=== PATIENT | male | born 1945 | race African-American/Black ===

== ENCOUNTER 2017-08-20 19:58 | Emergency (ER) | payer OTHER ==
[~2017-08-20] VITALS: Ht 177.8 cm; Wt 95.3 kg
[~2017-08-20 19:58] MED LIST: ALLEGRA180 MG PO; AMLODIPINE BESYL5 MG PO; BYSTOLIC10 MG PO; TAMIFLU75 MG PO
--- OUTSIDE RECORDS SUMMARY | 2017-08-20 20:01 | XMS REPORT | Clinical Summary ---
Author Author [facility] Address Unknown Phone Unavailable Care Team Providers Care Manager Council Name Role Phone Melissa Malone MD PCP Allergies No Known Allergies Current Medications Prescription Sig. Disp. Refills Start End Date Status Date diclofenac sodium 3 % gel 0 04/14/19 Active 18 finasteride (PROSCAR) 5 0 04/13/19 Active mg tablet 18 ketoconazole 2 % foam 0 02/17/20 Active 17 levocetirizine (XYZAL) 5 0 04/02/19 Active MG tablet 18 levoFLOXacin (LEVAQUIN) 0 04/19/19 Active 500 MG tablet 18 lidocaine (XYLOCAINE) 5 % 0 04/21/19 Active ointment 18 losartan (COZAAR) 100 MG 0 03/08/20 Active tablet 17 metFORMIN (GLUCOPHAGE) 04/22/19 Active 500 mg tablet 18 Active Problems Problem Noted Date Prostate cancer 05/05/2017 Elevated PSA 05/05/2017 Erectile dysfunction 05/05/2017 Encounters Date Type Specialty Care Team Description 08/17/2017 Clinical Urology Elevated PSA (Primary Dx) Support 05/20/2017 Office Visit Urology Micah Breaux MD Elevated PSA ( Primary Dx); Prostate cancer; Erectile dysfunction, unspecified erectile dysfunction type 05/14/2017 Hospital Radiology Micah Breaux MD Encounter 05/14/2017 Hospital Radiology Micah Breaux MD Prostate cancer Encounter 05/14/2017 Hospital Radiology Micah Breaux MD Prostate cancer Encounter 05/07/2017 Telephone Urology Micah Breaux MD 05/05/2017 Office Visit Urology Micah Breaux MD Prostate cancer (Primary Dx); Elevated PSA; Erectile dysfunction, unspecified erectile dysfunction type after 08/19/2016 Family History Relation Name Status Comments Father Mother Social History Tobacco Use Types Packs/Day Years Used Date Never Smoker Smokeless Tobacco: Never Used Alcohol Use Drinks/Week oz/Week Comments Yes Sex Assigned at Date Recorded Not on file Last Filed Vital Signs Not on file Plan of Treatment Date Type Specialty Care Team Description 09/07/2017 Office Visit Urology Micah Breaux MD [address] [facility] [address] [place] [address] Health Maintenance Due Date Last Done Comments COLON CANCER SCREENING 1996 SHINGRIX VACCINE (#1) 1996 ZOSTER VACCINE 2006 PNEUMOCOCCAL 10/08/2011 POLYSACCHARIDE VACCINE AGE 65 AND OVER PNEUMOCOCCAL-13 10/08/2011 INFLUENZA VACCINE 10/20/2017 Results * Prostate specific antigen (08/17/2017 8:51 AM) Only the most recent of 2 results within the time period is included. Component Value Ref Range PSA 54.7 (H) 0.0 - 4.0 ng/mL Comment: Elena ECLIA methodology. According to the [place] [employer], Serum PSA should decrease and remain at undetectable levels after radical prostatectomy. The AUA defines biochemical recurrence as an initial PSA value 0.2 ng/mL or greater followed by a subsequent confirmatory PSA value 0.2 ng/mL or greater. Values obtained with different assay methods or kits cannot be used interchangeably. Results cannot be interpreted as absolute evidence of the presence or absence of malignant disease. Specimen Performing Laboratory Blood [facility] Narrative Performed at:[id number] Screening Specialist: David Starr MD, Phone:[phone] * CT Abdomen W Wo Contrast Pelvis W Wo Contrast (05/14/2017 12:15 PM) Specimen Performing Laboratory [facility] [address] [place] [address] Narrative EXAMINATION:CT ABDOMEN W WO CONTRAST PELVIS W WO CONTRAST CLINICAL HISTORY:C61 Malignant neoplasm of prostate, prostate cancer COMPARISON:No prior TECHNIQUE: Pre and postcontrast images of the abdomen and pelvis were obtained with and without intravenous iodinated contrast. The lack of intravenous contrast limits assessment of the solid organs. CT imaging was performed with iterative reconstruction technique and/or automated exposure control to reduce radiation dose. IMPRESSION: ABDOMEN: 1. Liver: The liver is normal. No focal mass. 2. Gallbladder: The gallbladder is normal. 3. Spleen: The spleen is not enlarged. 4. Pancreas: The pancreas is unremarkable. 5. Adrenal Glands: The adrenal glands are unremarkable. 6. Kidneys: The kidneys are unremarkable except for mild renal cortical scarring. No mass, hydronephrosis or calculi. 7. Abdominal Aorta: The abdominal aorta is nonaneurysmal. 8. Nodes: No enlarged retroperitoneal or mesenteric lymphadenopathy. 9. Bowel: Moderate diverticulosis of the sigmoid colon. No bowel obstruction or inflammation. The appendix is normal. Mild diverticulosis elsewhere in the colon. 10. Ascites: No ascites or fluid collections. PELVIS: 1.Pelvis: No mass, fluid collection or significant adenopathy. The prostate is enlarged. No definite findings of local metastatic disease within the pelvis or spread beyond the prostate. Prostate MRI may be beneficial.Tiny left inguinal fat-containing hernia. 2. Bones: Degenerative changes of the osseous structures. No suspicious lesions. 3. Lung Bases: Minimal basilar scarring. SUMMARY: 1. Enlarged prostate. No evidence of metastatic disease. Procedure Note Hm Interface, Radiology Results - 05/14/2017 1:50 PM MALT HOUSE SUPERVISOR EXAMINATION: CT ABDOMEN W WO CONTRAST PELVIS W WO CONTRAST CLINICAL HISTORY: C61 Malignant neoplasm of prostate, prostate cancer COMPARISON: No prior TECHNIQUE: Pre and postcontrast images of the abdomen and pelvis were obtained with and without intravenous iodinated contrast. The lack of intravenous contrast limits assessment of the solid organs. CT imaging was performed with iterative reconstruction technique and/or automated exposure control to reduce radiation dose. IMPRESSION: ABDOMEN: 1. Liver: The liver is normal. No focal mass. 2. Gallbladder: The gallbladder is normal. 3. Spleen: The spleen is not enlarged. 4. Pancreas: The pancreas is unremarkable. 5. Adrenal Glands: The adrenal glands are unremarkable. 6. Kidneys: The kidneys are unremarkable except for mild renal cortical scarring. No mass, hydronephrosis or calculi. 7. Abdominal Aorta: The abdominal aorta is nonaneurysmal. 8. Nodes: No enlarged retroperitoneal or mesenteric lymphadenopathy. 9. Bowel: Moderate diverticulosis of the sigmoid colon. No bowel obstruction or inflammation. The appendix is normal. Mild diverticulosis elsewhere in the colon. 10. Ascites: No ascites or fluid collections. PELVIS: 1. Pelvis: No mass, fluid collection or significant adenopathy. The prostate is enlarged. No definite findings of local metastatic disease within the pelvis or spread beyond the prostate. Prostate MRI may be beneficial. Tiny left inguinal fat-containing hernia. 2. Bones: Degenerative changes of the osseous structures. No suspicious lesions. 3. Lung Bases: Minimal basilar scarring. SUMMARY: 1. Enlarged prostate. No evidence of metastatic disease. * POC creatinine (05/14/2017 12:09 PM) Component Value Ref Range POC creatinine 1.0 0.7 - 1.2 mg/dl Specimen Performing Laboratory Blood [facility] DEPARTMENT OF PATHOLOGY AND GENOMIC MEDICINE [address] [place] [address] * HI Bone Scan Whole Body (05/14/2017 11:05 AM) Specimen Performing Laboratory [facility] [address] [place] [address] Narrative PROCEDURE:NM BONE SCAN WHOLE BODY CLINICAL HISTORY:C61 Malignant neoplasm of prostate, prostate cancer COMPARISON:No prior bone scans available. CT abdomen/pelvis today TECHNIQUE: The patient was injected with 25 millicuries of [id number] intravenously , followed 3 hours later by whole-body scanning in the anterior and posterior projections. FINDINGS: Mild uptake bilaterally in L4 and along the right aspect of the mid thoracic spine. Slightly increased uptake is present in the upper SI joints bilaterally. Mild uptake in the hips bilaterally. Renal excretion is physiological. IMPRESSION: 1.No evidence of osseous metastatic disease. 2.Mild degenerative uptake, as above. [facility]-[id number] Procedure Note Interface, Radiology Results Incoming - 05/14/2017 7:02 PM MALT HOUSE SUPERVISOR PROCEDURE: NM BONE SCAN WHOLE BODY CLINICAL HISTORY: C61 Malignant neoplasm of prostate, prostate cancer COMPARISON: No prior bone scans available. CT abdomen/pelvis today TECHNIQUE: The patient was injected with 25 millicuries of [id number] intravenously , followed 3 hours later by whole-body scanning in the anterior and posterior projections. FINDINGS: Mild uptake bilaterally in L4 and along the right aspect of the mid thoracic spine. Slightly increased uptake is present in the upper SI joints bilaterally. Mild uptake in the hips bilaterally. Renal excretion is physiological. IMPRESSION: 1. No evidence of osseous metastatic disease. 2. Mild degenerative uptake, as above. [facility]-[id number] after 08/19/2016 Insurance Payer Benefit Subscriber ID Type Phone Address Plan / Group CIGNA CIGNA xxxxxxxxxxx [place] [id number]
--- NOTE | 2017-08-20 21:07 | Diagnostic Imaging Report ---
EXAMINATION: CHEST 2 VIEWS 08/20/2017 8:37 PM COMPARISON: 11/19/2014 INDICATION: Cough, congestion DISCUSSION: LINES: None. LUNGS: Linear opacities in the lung bases. PLEURA: No pleural effusion or pneumothorax. HEART AND MEDIASTINUM: The cardiomediastinal silhouette is unremarkable. BONES AND SOFT TISSUES: No acute osseous lesion. The soft tissues are normal. IMPRESSION: No evidence of infection or edema. Linear atelectasis or scarring in the lung bases. Lowell Gaviria MD Signed by: Dr. Lowell Gaviria M.D. on 08/20/2017 9:04 PM
[2017-08-20] MEDS ORDERED: ALBUTEROL SULF 0.083% NEB SOLN 3 ML NEB NEB STA (21:24)
[2017-08-20] MEDS ORDERED: IPRATROPIUM BROMIDE 0.02% 2.5 ML NEB NEB ONE (21:30)
[2017-08-20] MEDS ORDERED: AZITHROMYCIN250 MG PO (22:39)
[2017-08-20] MEDS ORDERED: PROAIR HFA INH8.5 GM INH (22:39)
[2017-08-21 02:36] VITALS: BP 142/87
== END 2017-08-20 23:05 | disposition home or self-care (01) ==
LOC: ER 19:58
DX: R05 Cough (principal); J20.9 Acute bronchitis, unspecified
CPT/HCPCS: 71046; 94640

== ENCOUNTER 2018-08-03 16:52 | Emergency (ER) | payer OTHER ==
[~2018-08-03] VITALS: Ht 177.8 cm; Wt 106.6 kg
[~2018-08-03 16:52] MED LIST changes: +AZITHROMYCIN250 MG PO; +PROAIR HFA INH8.5 GM INH
--- OUTSIDE RECORDS SUMMARY | 2018-08-03 16:56 | XMS REPORT | Clinical Summary ---
Author Author [facility] Address Unknown Phone Unavailable Care Team Providers Care Director Of Retail Marketing Name Role Phone Melissa Malone MD PCP Allergies Comments Active Allergy Reactions Severity Noted Date Stomach issues Naproxen Other (See 08/20/2017 Comments) Medications End Date Status Medication Sig Dispensed Refills Start Date Active diclofenac sodium 3 % gel 0 8 Active finasteride (PROSCAR) 5 0 mg tablet 8 Active ketoconazole 2 % foam 0 7 Active levocetirizine (XYZAL) 5 0 MG tablet 8 Active levoFLOXacin (LEVAQUIN) 0 500 MG tablet 8 Active lidocaine (XYLOCAINE) 5 % 0 ointment 8 Active losartan (COZAAR) 100 MG 0 tablet 7 Active metFORMIN (GLUCOPHAGE) 0 500 mg tablet 8 Active PROAIR HFA 90 INHALE BY 0 mcg/actuation inhaler MOUTH 8 DIRECTED Active CONTOUR NEXT TEST STRIPS 3 strip test strips 8 Active cefdinir (OMNICEF) 300 MG TAKE ONE 0 capsule CAPSULE BY 8 MOUTH EVERY 12 HOURS X7 DAYS Active predniSONE (DELTASONE) 10 PLEASE SEE 0 mg tablet ATTACHED FOR 8 DETAILED DIRECTIONS Active tamsulosin (FLOMAX) 0.4 0.4 mg=1 cap, 0 mg capsule PO, Daily, 0 8 Refill(s) Active tiZANidine (ZANAFLEX) 4 Take 4 mg by 0 MG tablet mouth 2 (two) 8 times a day. Active nebivolol (BYSTOLIC) 10 Daily 0 MG tablet Active hydroCHLOROthiazide 25 mg=1 tab, 0 (HYDRODIURIL) 25 MG PO, Daily, # 8 tablet 90 tab, 1 Refill(s) 03/30/2018 Discontinued aspirin (ECOTRIN) 81 MG 81 mg=1 tab, 0 enteric coated tablet PO, Daily, # 8 90 tab, 3 Refill(s) Active Problems Problem Noted Date Prostate cancer 05/05/2017 Elevated PSA 05/05/2017 Erectile dysfunction 05/05/2017 Encounters Care Team Description Date Type Specialty Micah Breaux MD Erectile dysfunction, unspecified erectile dysfunction type (Primary Dx); Prostate cancer (HCC); Elevated PSA 03/30/2018 Office Visit Urology Elevated PSA (Primary Dx) 02/28/2018 Clinical Urology Support Micah Breaux MD Elevated PSA (Primary Dx); Erectile dysfunction, unspecified erectile dysfunction type 09/07/2017 Office Visit Urology Elevated PSA (Primary Dx) 08/17/2017 Clinical Urology Support after 08/02/2017 Family History Relation Name Status Comments Father Mother Social History Date Tobacco Use Types Packs/Day Years Used Never Smoker Smokeless Tobacco: Never Used Alcohol Use Drinks/Week oz/Week Comments Yes Sex Assigned at Date Recorded Not on file Industry Job Start Date Occupation Not on file Not on file Not on file Travel End Travel History Travel Start No recent travel history available. Last Filed Vital Signs Not on file Plan of Treatment Care Team Description Date Type Specialty 09/19/2018 Clinical Urology Support Micah Breaux MD [address] [facility] [address] [place], [place] [id number] 09/28/2018 Office Visit Urology Health Maintenance Due Date Last Done Comments COLON CANCER SCREENING 1996 SHINGLES VACCINES (#1) 1996 65+ PNEUMOCOCCAL VACCINE 10/08/2011 03/26/2016 (2 of 2 - PPSV23) PNEUMOCOCCAL 10/08/2011 POLYSACCHARIDE VACCINE AGE 65 AND OVER INFLUENZA VACCINE 10/20/2018 01/06/2017, 03/26/2016 Procedures Comments Procedure Name Priority Date/Time Associated Diagnosis PROSTATE SPECIFIC ANTIGEN Routine 02/28/2018 Elevated PSA 10:24 AM ACCOUNT ANALYST PROSTATE SPECIFIC ANTIGEN Routine 08/17/2017 Elevated PSA 8:51 AM CDT after 08/02/2017 Results * Prostate specific antigen (02/28/2018 10:24 AM ACCOUNT ANALYST) Only the most recent of 2 results within the time period is included. PSA 74.3 (H) 0.0 - 4.0 ng/mL [facility] Comment: Elena ECLIA methodology. According to the [employer], Serum PSA should decrease and [...] presence or absence of malignant disease. Specimen Blood Narrative Performed At Performed at:01 - [facility] [address] [place], [id number] Driver Sales: David Starr MD, Phone:[phone] Performing Organization Address City/State/Zipcode Phone Number [facility] after 08/02/2017 Insurance Payer Benefit Subscriber ID Type Phone Address Plan / Group CIGNA CIGNA OPEN xxxxxxxxxxx HMO ACCESS/NET WORK (Home) [place] [address] Advance Directives Patient has advance care planning documents on file. For more information, maurizio liang contact: Stephen Camacho [address] [place] [address]
--- OUTSIDE RECORDS SUMMARY | 2018-08-03 16:56 | XMS REPORT | Summary of Care ---
Author Author [facility] Organization [facility] Address Unknown Phone Unavailable Encounter [facility] [address] Date(s): 05/12/17 - 05/12/17 [facility] [address] [place] [address]- Discharge Diagnosis: Encounter for screening for malignant neoplasm of colon Discharge Disposition: Discharged to Home or Self Care Attending Physician: Keagan Rubio MD Admitting Physician: Keagan Rubio MD Vital Signs 1 2 3 Most recent to oldest [Reference Range]: 37 DegC (05/12/17 9:39 AM) Temperature Oral [35.8-37.3 DegC] 36.7 DegC (05/12/17 10:40 AM) Temperature Temporal Artery [36.3-37.8 DegC] 98.06 (05/12/17 10:40 AM) Temperature Temporal Fahrenheit 58 bpm (05/12/17 11:30 AM) 57 bpm (05/12/17 9:39 AM) Peripheral Pulse Rate [55-105 bpm] 57 bpm *LOW* (05/12/17 11:00 AM) 61 bpm (05/12/17 10:50 AM) 62 bpm (05/12/17 10:40 AM) Heart Rate Monitored [60-100 bpm] 16 (05/12/17 11:30 AM) 16 (05/12/17 11:00 AM) 16 (05/12/17 10:50 AM) Respiratory Rate [12-20] 97 % (05/12/17 11:30 AM) 96 % (05/12/17 11:00 AM) 96 % (05/12/17 10:50 AM) SpO2 [90-100 %] 114/75 mmHg (05/12/17 11:30 AM) 113/74 mmHg (05/12/17 11:00 AM) 110/87 mmHg (05/12/17 10:50 AM) Blood Pressure [110-120/65-85 mmHg] 87 mmHg (05/12/17 11:00 AM) 82 mmHg (05/12/17 10:40 AM) Mean Arterial Pressure, Cuff 187.96 cm (05/12/17 9:39 AM) 187.96 cm (05/10/17 10:36 AM) Height 187.96 cm (05/12/17 9:39 AM) 187.96 cm (05/10/17 10:36 AM) Height/Length Dosing 74 in (05/12/17 9:39 AM) 74 in (05/10/17 10:36 AM) Height Inches 106.59 kg (05/12/17 9:39 AM) 106.59 kg (05/10/17 10:36 AM) Weight 106.59 kg (05/12/17 9:39 AM) 106.59 kg (05/10/17 10:36 AM) Weight Dosing 234 lb (05/12/17 9:39 AM) 234 lb (05/10/17 10:36 AM) Weight Pounds 30.17 kg/m2 (05/12/17 9:39 AM) 30.17 kg/m2 (05/10/17 10:36 AM) Body Mass Index Problem List Condition Effective Dates Status Health Status Informant Depression(Confirmed Active ) Hypercholesterolemia Active (Confirmed) Hypertension(Confirm Active ed) Palpitations - 03/2017 Active fluttering(Confirmed )1 Snake 2016 Resolved bite(Confirmed)2 1c/o infrequent episodes of "heart fluttering" onset around 3 weeks ago recent cardio eval. pending results. Pt trx for HTN, denies further cardiac HX. 2right hand Allergies, Adverse Reactions, Alerts No Known Medication Allergies Medications aspirin 81 mg oral tablet 81 mg=1 tabs, Oral, Daily, hold AM of procedure, 0 Refill(s) Start Date: 05/10/17 Stop Date: 05/24/17 Status: Ordered citalopram 40 mg, Oral, Daily, 0 Refill(s), depression Start Date: 05/10/17 Stop Date: 05/24/17 Status: Ordered lidocaine 2 mL, Injection, IV, Once, first dose 05/12/17 10:32:00 AERODYNAMICS ENGINEER, stop date 05/12/17 10:32:00 AERODYNAMICS ENGINEER Start Date: 05/12/17 Stop Date: 05/12/17 Status: Completed Lidocaine 2% 0.2 mL IV Start [[place]] 0.2 mL, Injection, Subcutaneous, Once PRN for other (see comment), first dose 9:38:00 AERODYNAMICS ENGINEER Start Date: 05/12/17 Stop Date: 05/12/17 Status: Deleted LR 1,000 mL 1,000 mL, IV, 75 mL/hr, start date 05/12/17 10:49:00 AERODYNAMICS ENGINEER Start Date: 05/12/17 Stop Date: 05/12/17 Status: Discontinued LR 1,000 mL 1,000 mL, IV, 30 mL/hr, start date 05/12/17 9:38:00 AERODYNAMICS ENGINEER Start Date: 05/12/17 Stop Date: 05/12/17 Status: Discontinued meloxicam 15 mg, Oral, Daily, 0 Refill(s) Start Date: 05/10/17 Stop Date: 05/24/17 Status: Ordered Misc Medication 500 mL, Soln-IV, IV, Once, first dose 05/12/17 10:49:00 AERODYNAMICS ENGINEER, stop date 05/12/17 10:49:00 AERODYNAMICS ENGINEER Start Date: 05/12/17 Stop Date: 05/12/17 Status: Completed propofol 200 mg=20 mL, Emulsion, IV, Once, first dose 05/12/17 10:32:00 AERODYNAMICS ENGINEER, stop date 10:32:00 AERODYNAMICS ENGINEER Start Date: 05/12/17 Stop Date: 05/12/17 Status: Completed Saline Lock Flush 10 mL, Soln, IV Push, As Indicated PRN for flush, first dose 05/12/17 10:49:[address] Start Date: 05/12/17 Stop Date: 05/12/17 Status: Discontinued unknown BP medication unknown BP medication, PO QDay ; take AM of procedure, 0 Refill(s), HTN Start Date: 05/10/17 Status: Ordered Results No data available for this section Immunizations No data available for this section Procedures Procedure Date Related Diagnosis Body Site COLONOSCOPY FLEXIBLE; WITH BIOPSY; SINGLE OR 05/12/17 MULTIPLE 36487 (Other)1 none 1auto-populated from documented surgical case Social History Social History Type Response Smoking Status Former smoker; Type: Cigarettes; Number of years: 8; Stopped at age: 41; Assessment and Plan No data available for this section
--- OUTSIDE RECORDS SUMMARY | 2018-08-03 16:56 | XMS REPORT ---
Author Author [facility] Address Unknown Phone Unavailable Care Team Providers Care Product Tester Fiberglass Name Role Phone HERMANTeddyENCE Unavailable Unavailable DR BILLIE GALINDO Unavailable Unavailable Problems This patient has no known problems. Allergies, Adverse Reactions, Alerts This patient has no known allergies or adverse reactions. Medications This patient has no known medications. Results Test Description Test Time Test Comments Text Results Atomic Results Result Comments URINALYSIS WITH MICRO 2016-11-12 00:41:00 COLOR (test code=COLU) YELLOW YELLOW CLARITY (test code=CLA) CLEAR CLEAR GLUCOSE UR (test code=UA GLUCOSE) NEGATIVE NEGATIVE BILI UR (test code=BILE) NEGATIVE NEGATIVE KETONES UR (test code=WILNER) NEGATIVE NEGATIVE SP GRAVITY (test code=SPGR) 1.012 1.005-1.030 PH UR (test code=PH) 6.5 4.5-8.0 PROTEIN UR (test code=PU) NEGATIVE NEGATIVE UROBIL UR (test code=UROQ) 0.2 EU/dL 0.2-1.0 NITRITE UR (test code=NITRITE) NEGATIVE NEGATIVE BLOOD UR (test code=UA BLOOD) NEGATIVE NEGATIVE LEUK ES UR (test code=LEUK) TRACE NEGATIVE WBC UR (test code=UWBC) 2 /HPF 0-3 RBC UR (test code=URBC) 0 /HPF 0-2 EPITH UR (test code=UEPC) NONE /LPF NONE BACTERIA UR (test code=UBACT) NONE /HPF NONE CAST UR (test code=CAST) /LPF NONE CRYSTAL UR (test code=CRYU) / LPF NONE MUCUS UR (test code=MUC) / HPF NONE AMORPH UR (test code=KASSANDRA) / HPF NONE TRICH UR (test code=UTRICH) /HPF NONE YEAST UR (test code=UY) /HPF NONE SPERM UR (test code=USPERM) /HPF NONE CT STONE PROTOCOL [id number] 00:39:04CT abdomen/pelvis without contrast:HISTORY: Right flank painTECHNIQUE: A noncontrast CT scan of the abdomen and pelvis was performed fromthe domes of the diaphragm to the symphysis pubis. Coronal and sagittalreformations were performed. After hour services performed at 12:34 AM. One or more of the following dose reduction techniques were used: Automatedexposure control, adjustment of the mA and/or kV according to patient size,and/or utilization of iterative reconstruction technique. Total DLP: 974mGy-cm.No prior studies are available for comparison.SITE: [id number]:No renal/ureteral stones are identified. No evidence of hydronephr osis. Theurinary bladder is underdistended, limiting evaluation.There are a few too small to characterize hepatic hypodensities. Thegallbladder is contracted, l imiting evaluation. There is no biliary ductaldilatation. The noncontrast appear ance of the spleen, adrenal glands, andpancreas are unremarkable.No bowel obstr uction, free fluid, or free air. The appendix is normal.No abdominal/pelvic lymp hadenopathy is identified.There is no pelvic mass. No aggressive osseous lesions are seen. Degenerative changes are seenthroughout the spine, most pronounced at L5-S1 and T9-T10.IMPRESSION:1. No nephrolithiasis, urolithiasis or hydronephro sis, bilaterally.2. No acute appendicitis.3. Scattered too small to characteri ze hepatic hypodensities, statisticallybenign though incompletely characterized. COMPREHENSIVE METABOLIC [id number] 03:32:00* Test Item Value Reference Range Comments GLUCOSE (test code=06D) 109 mg/dL 75-100 SODIUM (test code=01A) 144 mmol/L 136-145 POTASSIUM (test code=01B) 3.7 mmol/L 3.6-5.1 CHLORIDE (test code=04A) 107 mmol/L 98-107 CO2 (test code=02A) 29 mmol/L 22-32 ANION GAP (test code=ANG) 11.7 mmol/L BUN (test code=05D) 11 mg/dL 7-18 CREATININE (test code=03E) 1.2 mg/dL 0.7-1.3 BUN/CREA R (test code=BCR) 9 12-20 CALCIUM (test code=09D) 8.5 mg/dL 8.3-9.5 BILI TOTAL (test code=11A) 0.5 mg/dL 0.2-1.0 PROTEIN (test code=07D) 6.8 g/dL 6.4-8.2 ALBUMIN (test code=08D) 3.6 g/dL 3.5-4.8 GLOBULIN (test code=GLB) 3.2 g/dL 1.5-3.8 ALB/GLOB (test code=AGRR) 1.1 1.0-2.6 ALK PHOS (test code=35A) 86 IU/L 42-121 AST (test code=30A) 27 IU/L <=42 ALT (test code=31A) 29 IU/L <=78 CARDIAC [id number] 03:31:00* Test Item Value Reference Range Comments TROPONIN I (test code=A84) <0.015 ng/mL 0.000-0.045 CKMB (test code=A49) 2.7 ng/mL <=3.6 CPK (test code=32A) 346 IU/L 39-308 CBC (INCLUDES AUTOMATED DIFFERENTIAL)2016-09-02 03:15:00* Test Item Value Reference Range Comments WBC (test code=WBC) 5.6 10\S\3/uL 4.5-11.0 RBC (test code=RBC) 4.86 10\S\6/uL 3.80-5.80 HGB (test code=HBG) 13.6 g/dL 14.0-18.0 HCT (test code=HCT) 41.8 % 35.0-46.0 MCV (test code=MCV) 86.0 fL 80.0-94.0 MCH (test code=MCH) 28.0 pg 27.0-31.0 MCHC (test code=MCHC) 32.5 g/dL 32.0-36.0 RDW (test code=RDW) 14.6 % 11.5-14.5 PLT (test code=PLT) 163 10\S\3/uL 130-400 MPV (test code=MPV) 12.3 fL 9.4-12.4 NEUTROP # (test code=NE#) 2.3 10\S\3/uL 2.0-8.0 LYMPH # (test code=LY#) 2.6 10\S\3/uL 1.2-4.0 MONOCYTE # (test code=MO#) 0.6 10\S\3/uL 0.0-1.1 EOSINOPH # (test code=EO#) 0.2 10\S\3/uL 0.0-0.7 BASOPHIL # (test code=BA#) 0.0 10\S\3/uL 0.0-0.3 IG # (test code=IG#) 0.01 10\S\3/uL 0.00-0.06 NRBC # (test code=NRBC#) 0.00 10\S\3/uL 0.00-0.01 NEUTROPH % (test code=NE%) 40.1 % 35.0-73.0 LYMPH % (test code=LY%) 45.8 % 20.0-55.0 MONO % (test code=MO%) 10.3 % 2.5-10.0 EOSINOPH % (test code=EO%) 3.2 % 0.0-5.0 BASOPHIL % (test code=BA%) 0.4 % 0.0-2.0 IG % (test code=IG%) 0.2 % 0.0-0.8 NRBC% (test code=NRBC%) 0.0 % 0.0-0.2 MANDIFF (test code=MDIFF) NO NO CHEST 2 VIEWS [place] [address] Patient Name: JESIKA JACKMAN MR #: [id number] : 1945 Age/Sex: 71/M Req #: [id number] Adm Physician: Ordered by: JOSEMANUEL SUTTON MD Report #: [id number] Location: ER Room/Bed: Procedure: [id number] DX/CHEST 2 VIEWS Exam Braden e: 08/20/17 Exam Time: 2039 REPORT STATUS: Sign ed EXAMINATION: CHEST 2 VIEWS 08/20/2017 8:37 PM COMPARISON: 5 INDICATION: Cough, congestion DISCUSSION: LINES: None. LUNGS: Linear opacities in the lung bases. PLEURA: No pleural effusio n or pneumothorax. HEART AND MEDIASTINUM: The cardiomediastinal silhouette is unremarkable. BONES AND SOFT TISSUES: No acute osseous lesion. The soft tissues are normal. IMPRESSION: No evidence of infection or edema. Linear atelectasis or scarring in the lung bases. Jeanne Gaviria MD Signed by: Dr. Jeanne Gaviria M.D. on 08/20/2017 9:04 PM Dictated By: PEDRO GAVIRIA MD 210 4 Transcribed By: LENNY on 08/20/170 COPY TO: JOSEMANUEL SUTTON
--- OUTSIDE RECORDS SUMMARY | 2018-08-03 16:56 | XMS REPORT | Continuity of Care Document ---
Author Author [facility] Address Unknown Phone Unavailable Problems Problem Status Onset Date Classification Date Reported Comments Source Discharge Diagnosis: Encounter for screening for malignant neoplasm of colon 05/12/2017 05/14/2017 [facility] Palpitations - fluttering<sup>1</sup> Active 03/22/2017 Problem 05/14/2017 c/o infrequent episodes of "heart fluttering" onset around 3 weeks ago recent cardio eval. pending results. Pt trx for HTN, denies further cardiac HX. [facility] Snake bite<sup>2</sup> Resolved 03/22/2015 Problem 05/14/2017 right hand [facility] Depression Active Problem 05/14/2017 [facility] Hypercholesterolemia Active Problem 05/14/2017 [facility] Hypertension Active Problem 05/14/2017 [facility] Medications Medication Details Route Status Patient Instructions Ordering Provider Order Date Source LR 1,000 mL 1,000 mL, IV, 75 mL/hr, start date 05/12/17 10:49:00 VEHICLE DISMANTLER Inactive 05/12/2017 [facility] Saline Lock Flush 10 mL, Soln, IV Push, As Indicated PRN for flush, first dose 05/12/17 10:49:00 VEHICLE DISMANTLER Inactive 05/12/2017 [facility] Misc Medication 500 mL, Soln-IV, IV, Once, first dose 05/12/17 10:49:00 VEHICLE DISMANTLER, stop date 05/12/17 10:49:00 VEHICLE DISMANTLER Inactive 05/12/2017 [facility] propofol 200 mg=20 mL, Emulsion, IV, Once, first dose 05/12/17 10:32:00 VEHICLE DISMANTLER, stop date 05/12/17 10:32:00 VEHICLE DISMANTLER Inactive 05/12/2017 [facility] lidocaine 2 mL, Injection, IV, Once, first dose 05/12/17 10:32:00 VEHICLE DISMANTLER, stop date 05/12/17 10:32:00 VEHICLE DISMANTLER Inactive 05/12/2017 [facility] Lidocaine 2% 0.2 mL IV Start [[place]] 0.2 mL, Injection, Subcutaneous, Once PRN for other (see comment), first dose 05/12/17 9:38:00 VEHICLE DISMANTLER Inactive 05/12/2017 [facility] LR 1,000 mL 1,000 mL, IV, 30 mL/hr, start date 05/12/17 9:38:00 VEHICLE DISMANTLER Inactive 05/12/2017 [facility] unknown BP medication unknown BP medication, PO QDay ; take AM of procedure, 0 Refill(s), HTN Active 05/10/2017 [facility] meloxicam 15 mg, Oral, Daily, 0 Refill(s) Active 05/10/2017 [facility] Citalopram 40 mg, Oral, Daily, 0 Refill(s), depression Active 05/10/2017 [facility] Aspirin 81 MG Oral Tablet 81 mg=1 tabs, Oral, Daily, hold AM of procedure, 0 Refill(s) Active 05/10/2017 [facility] Allergies, Adverse Reactions, Alerts Substance Category Reaction Severity Reaction type Status Date Reported Comments Source No Known Medication Allergies Assertion Drug allergy [facility] Immunizations Immunization Date Given Site Status Last Updated Comments Source Results Order Name Results Value Reference Range Date Interpretation Comments Source Vital Signs Vital Sign Value Date Comments Source Systolic (mm Hg) 114 05/12/2017 [facility] Diastolic (mm Hg) 75 05/12/2017 [facility] Respitory Rate 16 05/12/2017 [facility] Peripheral Pulse Rate 58 05/12/2017 [facility] Respitory Rate 16 05/12/2017 [facility] Heart Rate 57 05/12/2017 [facility] Systolic (mm Hg) 113 05/12/2017 [facility] Diastolic (mm Hg) 74 05/12/2017 [facility] Systolic (mm Hg) 110 05/12/2017 [facility] Diastolic (mm Hg) 87 05/12/2017 [facility] Respitory Rate 16 05/12/2017 [facility] Heart Rate 61 05/12/2017 [facility] Heart Rate 62 05/12/2017 [facility] Temperature Oral (F) 36.7 [place] 05/12/2017 [facility] Temperature Oral (F) 37 [place] 05/12/2017 [facility] Height 187.96 cm 05/12/2017 [facility] Peripheral Pulse Rate 57 05/12/2017 [facility] Weight Measured 106.59 05/12/2017 [facility] Height 187.96 cm 05/10/2017 [facility] Weight Measured 106.59 05/10/2017 [facility] Encounters Location Location Details Encounter Type Encounter Number Reason For Visit Attending Provider ADM Date DC Date Status Source [facility] Outpatient [id number] Keagan Vachhani 05/12/2017 05/12/2017 Active [facility] Outpatient [id number] Keagan Vachhani 05/12/2017 05/12/2017 [facility] Procedures Procedure Code Date Perfomer Comments Source COLONOSCOPY FLEXIBLE; WITH BIOPSY; SINGLE OR MULTIPLE 45290 (Other)<sup>1</sup> 05/12/2017 auto-populated from documented surgical case [facility]
== END 2018-08-03 19:50 | disposition short-term general hospital (02) ==
LOC: ER 16:52
DX: I10 Essential (primary) hypertension (principal)

== ENCOUNTER 2018-11-10 10:03 | Emergency (ER) | payer OTHER ==
[~2018-11-10] VITALS: Ht 177.8 cm; Wt 106.6 kg
--- OUTSIDE RECORDS SUMMARY | 2018-11-10 10:05 | XMS REPORT | Clinical Summary ---
Author Author [facility] Address Unknown Phone Unavailable Care Team Providers Care Pack Operator Name Role Phone Melissa Malone MD PCP [...] # 8 tablet 90 tab, 1 Refill(s) Active montelukast (SINGULAIR) Take 10 mg by 0 10 mg tablet mouth daily. 9 Active mupirocin (BACTROBAN) 2 % APPLY TO 0 ointment AFFECTED AREA 9 TWICE A DAY Active MUCINEX DM 30-600 mg TAKE 1 TABLET 0 tablet extended release BY MOUTH 9 12 hr EVERY 12 HOURS NEEDED FOR 10 DAYS Active clotrimazole-betamethason APPLY TO 0 e (LOTRISONE) 1-0.05 % AFFECTED AREA 9 cream TWICE A DAY FOR 15 DAYS 03/30/2018 Discontinued (Error) aspirin (ECOTRIN) 81 MG 81 mg=1 tab, 0 enteric coated tablet PO, Daily, # 8 90 tab, 3 Refill(s) Active Problems Problem Noted Date Prostate cancer 05/05/2017 Elevated PSA 05/05/2017 Erectile dysfunction 05/05/2017 Encounters Care Team Description Date Type Specialty Micah Breaux MD 09/23/2018 Telephone Urology Micah Breaux MD Prostate cancer (HCC) (Primary Dx); Elevated PSA; Erectile dysfunction, unspecified erectile dysfunction type 09/21/2018 Office Visit Urology Micah Breaux MD Prostate cancer (HCC) (Primary Dx) 09/12/2018 Clinical Urology Support Micah Breaux MD 08/29/2018 Telephone Urology Micah Breaux MD Erectile dysfunction, unspecified erectile dysfunction type (Primary Dx); Prostate cancer (HCC); Elevated PSA 03/30/2018 Office Visit Urology Elevated PSA (Primary Dx) 02/28/2018 Clinical Urology Support after 11/09/2017 Family History Relation Name Status Comments Father Mother Social History Date Tobacco Use Types Packs/Day Years Used Never Smoker Smokeless Tobacco: Never Used Drinks/Week oz/Week Comments Alcohol Use Yes Sex Assigned at Date Recorded Not on file Industry Job Start Date Occupation Not on file Not on file Not on file Travel End Travel History Travel Start No recent travel history available. Last Filed Vital Signs Not on file Plan of Treatment Care Team Description Date Type Specialty 03/20/2019 Clinical Urology Support Micah Breaux MD [address] [facility] [address] [place] [address] [phone] 03/28/2019 Office Visit Urology Health Maintenance Due Date Last Done Comments COLONOSCOPY SCREENING 1996 SHINGLES VACCINES (#1) 1996 65+ PNEUMOCOCCAL VACCINE 10/08/2011 03/26/2016 (2 of 2 - PPSV23) INFLUENZA VACCINE 10/20/2018 01/06/2017, 03/26/2016 Procedures Comments Procedure Name Priority Date/Time Associated Diagnosis PROSTATE SPECIFIC ANTIGEN Routine 09/12/2018 Prostate cancer (HCC) 8:59 AM CDT PROSTATE SPECIFIC ANTIGEN Routine 02/28/2018 Elevated PSA 10:24 AM [employer]NAGER [employer]MENT after 11/09/2017 Results * Prostate specific antigen (09/12/2018 8:59 AM CDT) Only the most recent of 2 results within the time period is included. PSA 82.9 (H) 0.0 - 4.0 ng/mL [facility] Comment: Elena ECLIA methodology. According to the [employer], Serum PSA should decrease and [...] disease. Specimen Blood Narrative Performed At Performed at: - [facility] [address], [id number] Emergency Room Nurse: David Starr MD, Phone:[phone] Performing Organization Address City/State/Zipcode Phone Number [facility] after 11/09/2017 Insurance Type Payer Benefit Subscriber ID Effective Phone Address Plan / Dates Group HMO CIGNA CIGNA OPEN xxxxxxxxxxx 2004-P ACCESS/NET resent WORK (Home) [place] [address] Advance Directives For more information, please contact: [phone] Patient Crime Analyst Explanation Type Date Recorded Advance Directives, Living Will and Medical Power of Turn Down Worker
[2018-11-10] MEDS: MORPHINE SULFATE INJ 4 MG/ML INJ 1ML IV ONE ×2 (10:56→11:50)
--- NOTE | 2018-11-10 11:12 | NUR ---
X1 UNSUCCESSFUL IV ATTEMPT, RIGHT HAND AND X1 UNSUCCESSFUL IV ATTEMPT TO RIGHT AC BY KATHEIRNE CHAN. PATIENT STATES THAT HE DOES NOT WANT TO BE "STUCK AGAIN" FOR IV. EDUCATED PATIENT ON CURRENT PLAN OF CARE AND ORDERED IV MEDICATION,VERBALIZED UNDERSTANDING. NOTIFIED KATHERINE CHAN, PRIMARY NURSE.
--- NOTE | 2018-11-10 12:00 | NUR ---
PATIENT REFUSING MORPHINE AT THIS TIME. PATIENT STATING "I DON'T WANT TO BE STUCK ANY MORE"
[2018-11-10] MEDS ORDERED: CEFAZOLIN SOD 1 GM VIAL IV SCH (12:30)
--- NOTE | 2018-11-10 13:03 | NUR ---
DR. BAIN AWAITING RETURN PHONE CALL FROM [facility] (HAND SPECIALIST)
--- NOTE | 2018-11-10 13:09 | Diagnostic Imaging Report ---
Exam: Left second digit 3 views Clinical history: Trauma Findings: There is cortical defect involving the medial aspect of the distal metaphysis of the second middle phalanx which may represent acute fracture. Soft tissue defect is noted in the lateral aspect of the second middle phalanx. Clinical correlation is recommended to rule out an open fracture. Impression: 1. Acute traumatic changes involving the second middle phalanx as described. Signed by: Dr. Mikal Kaplan MD on 11/10/2018 1:06 PM
--- NOTE | 2018-11-10 13:21 | NUR ---
PATIENT UPDATED ABOUT PLAN OF CARE AT THIS TIME; PATIENT NEEDING WASHOUT AND REPAIR TO LEFT INDEX FINGER. EXPLAINED TO PATIENT THE NEED FOR IV ACCESS AND IV ANTIBIOTICS. PATIENT AGREED, BUT STATED " LONG YOU CAN PROMISE THAT I WILL ONLY BE STUCK ONCE MORE AND IT IS SOMEONE THAT HAS NOT ALREADY STUCK ME". EXPLAINED TO PATIENT THAT THAT COULD NOT BE GAURANTEED, BUT THAT I WOULD CONTACT THE [employer]OBE BLOCK MAKER TO SEE IF HE CAN COME START AN IV. PATIENT LEFT INDEX FINGER WRAPPED WITH XEROFORM AND COBAN PER DR BAIN REQUEST. PATIENT STATED "MY FINGER DIDN'T HURT UNTIL YOU STARTED MESSING WITH IT" EXPLAINED TO PATIENT THAT WOUND NEEDED TO BE COVERED FOR INFECTION PREVENTION. PATIENT VERBALIZED UNDERSTANDING OF NEED FOR IV ACCESS AND WOUND DRESSING.
--- NOTE | 2018-11-10 13:24 | NUR ---
SPOKE WITH PATRICIA MURPHY REGARDING NEED FOR IV ACCESS FOR PATIENT.
[2018-11-10] MEDS ORDERED: CEFAZOLIN SOD 2 GM/D5W 50ML 50 ML IV ONE (13:30)
--- NOTE | 2018-11-10 13:30 | NUR ---
INITIATED TRANSFER TO [facility] FOR A HIGHER LEVEL OF CARE FOR HAND SURGEON AND PLASTIC SURGERY, SPOKE WITH KAT.
--- NOTE | 2018-11-10 13:32 | NUR ---
PATRICIA MURPHY BEDSIDE FOR IV ACCESS AT THIS TIME
[2018-11-10] MEDS ORDERED: TETANUS/DIPHTHERIA TOX ADULT 0.5 ML SYR IM ONE (13:45)
--- NOTE | 2018-11-10 13:45 | NUR ---
PATIENT STATING THAT HE WAS GOING TO DRIVE HIMSELF TO [facility] WHEN IT WAS TIME FOR TRANSFER. EXPLAINED TO PATIENT THAT HE WOULD NOT BE PERMITTED TO DRIVE HIMSELF FOR SAFETY CONCERNS. PATIENT STATING THAT HE WOULD NOT GO VIA AMBULANCE, THAT HE WAS GOING TO SIGN OUT AMA. EXPLAINED TO PATIENT THAT HE NEEDED TO GET HIS TETANUS SHOT AND IV ANTIBIOTICS, BUT PATIENT REFUSED STATING THAT HE WAS GOING TO LEAVE AMA.
--- NOTE | 2018-11-10 13:47 | NUR ---
PATIENT STATING THAT HE IS GOING TO LEAVE NOW AND DRIVE HIMSELF TO THE [facility]; PATIENT STATING THAT HE WOULD NOT GET THE TETANUS SHOT OR THE ANTIBIOTICS. PATIENT STATED THAT "I AM GOING TO DRIVE MYSELF TO THE [facility] AND WHEN THEY GET A HOLD OF MY RECORDS IT IS NOT GOING TO BE GOOD FOR YOU, NO IT SURE WON'T". PATIENT THEN STATED THAT HE WOULD SIGN OUT AMA AND THAT HE UNDERSTOOD THE RISKS OF LEAVING WIHTOUT THE PROPER TREATMENT. PATIENT THEN GOT UP AND LEFT THE ROOM, PATIENT TOLD THAT IV NEEDED TO BE D/S'D AND PAPERWORK NEEDED TO BE SIGNED. PATIENT STATED "YOU ARE NOT GOING TO DO THAT, I AM LEAVING". PATIENT THEN PUSHED PAST AND WENT OUT THE DOOR. AGAIN ATTEMPTED TO GET PATIENT TO ALLOW ME TO TAKE OUT HIS IV, PATIENT JUST KEPT WALKING, GOT INTO HIS [employer] TRUCK AND LEFT. ROLAND MIGUEL NOTIFIED BY LEVON MURPHY. DR BAIN NOTIFIED.
--- NOTE | 2018-11-10 13:53 | NUR ---
[facility], TRANSFER CENTER, TRANSFER ACCEPTED. SPOKE WITH KAT. NOTIFIED KAT PATIENT STATES THAT HE DOES NOT WANT TO BE TRANSFERED AND IS REQUESTING TO LEAVE AMA, AND DR BAIN IS CONSULTING WITH PATIENT AND DISCUSSING THE CURRENT PLAN OF CARE. WILL NOTIFY KAT WHEN PATIENT MAKES DECISION REGARDING TRANSFER.
--- NOTE | 2018-11-10 13:54 | NUR ---
PATIENT REFUSING TO SIGN AMA FORM, PATIENT AMBULATORY OUT OF DEPARTMENT, NOTIFIED PATIENT IV NEEDS TO BE D/C BEFORE LEAVING,PATIENT REFUSED. FREDERICK,RN, DUSTIN,RN, LEVON,RN AND CATRACHITA GOMEZ IN ER PARKING LOT TO ATTEMPT IV D/C. PATIENT CONTINUED TO REFUSE IV D/C AND CONTINUED TO WALK TO VEHICLE. EDUCATED PATIENT ON THE RISKS OF LEAVING AGAINST MEDICAL ADVICE AND BENEFITS OF BEING TRANSFERED FOR A HIGHER LEVEL OF CARE,VERBALIZED UNDERSTANDING. PATIENT GOT IN [facility] 4 DOOR, [facility], LATER [facility]: [id number], AND DROVE OUT OF ER PARKING LOT, TOOK LEFT ON [address] NOTIFIED DR ODELL CAN LEFT WITH IV,REFUSED TRANSFER, AND LEFT AMA. WILL NOTIFY [place] [employer].
--- NOTE | 2018-11-10 13:56 | NUR ---
NOTIFIED [place] [employer] THAT PATIENT LEFT WITH IV AND REFUSED TO HAVE IV D/C, SPOKE WITH OFFICER IRWIN.
--- NOTE | 2018-11-10 14:00 | NUR ---
NOTIFIED [facility] TRANSF[facility] TO CANCEL TRANSFER, SPOKE WITH KAT, PATIENT LEFT AMA AND REFUSED TRANSFER.
== END 2018-11-10 14:00 | disposition left against medical advice (07) ==
LOC: ER 10:03
DX: S61.211A Laceration without foreign body of left index finger without damage to nail, initial encounter (principal); Z53.29 Procedure and treatment not carried out because of patient's decision for other reasons; W45.8XXA Other foreign body or object entering through skin, initial encounter
CPT/HCPCS: 73140; 99284; J0690; J2270